=== PATIENT | male | born 1970 | race Caucasian/White ===

== ENCOUNTER 2018-02-06 08:26 | Outpatient (CLI) | payer OTHER ==
--- NOTE | 2018-02-06 10:21 | CT ---
CT ABDOMEN AND PELVIS WITHOUT CONTRAST: Comparison: None. History: Left flank pain for the past month. Technique: Multiple contiguous axial images were obtained in a CT of the abdomen and pelvis without c ontrast. Coronal reformats were performed. FINDINGS: There is a 2.6 cm nonspecific hypodense lesion in the anterior aspect of the left lobe of the liver. This does not meet criteria for a simple cyst. The gallbladder, right kidney, adrenal glands, spleen, and pancreas are unremarkable, although evaluation is limited without IV contrast. There appears to be a subcentimeter hypodensity in the left kidney which cannot be characterized without contrast and given its small size. No free air, free fluid, or stranding changes are seen in the abdomen or pelvis . There is scattered diverticula in the colon. The small bowel is unremarkable. No abdominal or pelvic lymphadenopathy are seen. No calcifications are seen in either ureter or in the urinary bladder. Degenerative changes are seen in the spine. Visualized inferior thorax and abdominal wall soft tissue s are unremarkable. IMPRESSION: 1. No evidence of renal calculi. 2. Nonspecific hypodensity in the left lobe of the liver. A CT of the abdomen per liver mass protocol is recommended for better characterization. 3. Hypodensity in the left kidney is too small to definitely characterize but could represent a small cyst. 4. Diverticulosis. POS: [facility]
== END 2018-02-06 08:27 | disposition home or self-care (01) ==
LOC: SCSCT 08:26
PROVIDERS: ATTEND Nurse Practitioner Family
DX: R10.9 Unspecified abdominal pain (principal); K57.30 Diverticulosis of large intestine without perforation or abscess without bleeding; K76.89 Other specified diseases of liver
CPT/HCPCS: 74176

== ENCOUNTER 2018-03-13 07:30 | Outpatient (CLI) | payer OTHER ==
[2018-03-13] MEDS ORDERED: Iopamidol 370 76% 100 ML VIAL ONE (09:00)
--- NOTE | 2018-03-13 14:19 | CT ---
CT ABDOMEN AND PELVIS WITH AND WITHOUT CONTRAST: (Liver mass protocol) Date: 03/13/18 HISTORY: Liver mass on a recent CT examination. COMPARISON: CT stone protocol dated 02/06/18. FINDINGS: The lung bases are clear. No pericardial effusion. In hepatic segment II, there is a subcapsular mass, which is ovoid, measuring 2.4 x 1.9 cm, with maura pheral centripetal enhancement. On the 5 minute delayed phase of contrast, the mass is smaller centra lly with some peripheral enhancement. No abnormal central arterial enhancement to this mass. No other abnormality of the liver is appreciated. There is a small hypodensity intrapolar left kidney with fluid attenuation suggesting a cyst. No abno rmal renal enhancing mass. The pancreas is unremarkable. Aortic size is normal. No dilated loops of large or small bowel in the upper abdomen. There are strong ureteral jets seen extending from the ureterovesical junctions bilaterally. This is seen on the delayed coronal sequence. There is also moderate diverticular disease of the sigmoid colo n without active current inflammation. No dilated loops of large or small bowel. No retroperitoneal adenopathy. No acute osseous abnormality . IMPRESSION: The recent hepatic findings are diagnostic of a benign hepatic hemangioma. POS: [facility]
== END 2018-03-13 07:31 | disposition home or self-care (01) ==
LOC: SCSCT 07:30
PROVIDERS: ATTEND Internal Medicine Gastroenterology
DX: R10.9 Unspecified abdominal pain (principal); D18.03 Hemangioma of intra-abdominal structures
CPT/HCPCS: 74178

== ENCOUNTER 2020-07-13 01:22 | Inpatient (IN) | payer OTHER, BC ==
[2020-07-13 01:44] LABS: #Basophils 0.1 thou/uL (0.0-0.2); #Eosinphils 0.1 thou/uL (0.0-0.7); #Lymphocytes 4.1 thou/uL (1.20-3.40); #Monocytes 0.6 thou/uL (0.11-0.59); #Neutrophils 5.8 thou/uL (1.40-6.50); %Basophils 0.8 % (0.0-1.0); %Lymphocytes 38.6 % (21.0-51.0); %Monocytes 5.4 % (0.0-10.0); %Neutrophils 54.2 % (42.0-75.0); Mean Corpuscular HGB CONC 34.3 g/dL (32.0-36.0); Mean Corpuscular Volume 93.4 fL (78.0-98.0); Mean Platelet Volume 6.7 fL (7.4-10.4); Platelet Count 304 thou/uL (130-400); RBC Distribution Width 11.5 % (11.5-14.5); Red Blood Cell (RBC) Count 5.02 mill/uL (4.70-6.10); White Blood Cell (WBC) Count 10.7 thou/uL (4.8-10.8)
[2020-07-13 01:44] LABS: Analyzer IN Cardio ER; Base Excess (BEa) -8.9 mEq/L (-2.0 to +3.0); CO2 Tension 42.1 mmHg (35.0-45.0); Calcium, Ionized (arterial) 1.24 mmol/L (1.12-1.30); Carboxyhemoglobin (COHb) 0.1 gm% (0.0-3.0); Hemoglobin (Hb) 16.4 g/dL (14.0-18.0); O2 Tension (PaO2), arterial 241.5 mmHg (80.0-100.0); Potassium - ABG Lab 4.49 mmol/L (3.70-5.30)
[2020-07-13 01:45] LABS: pH, Arterial 7.25 (7.35-7.45)
[2020-07-13] MEDS ORDERED: Fentanyl CADD 100 ML IV SCH (01:45)
[2020-07-13 01:46] LABS: ALV-art Gradient 130.675 mmHg (0-20); Puncture Site LRA
[2020-07-13 01:51] LABS: PTT 24.9 sec (22.9-36.1); Prothrombin Time 13.5 sec (12.0-14.7)
[2020-07-13 01:52] LABS: Lactic Acid 2.4 mmol/L (0.5-2.2)
[2020-07-13 01:56] LABS: ALT (SGPT) 47 U/L (8-55); AST (SGOT) 48 U/L (5-34); Albumin 4.4 g/dL (3.5-5.0); Alkaline Phosphatase 80 U/L (40-110); Anion Gap 19 mmol/L (10-20); BUN (Urea Nitrogen) 25 mg/dL (8.9-20.6); Bilirubin, Total 0.6 mg/dL (0.2-1.2); Calc. Creatinine Clearance 0 mL/min (70-130); Carbon Dioxide 15 mmol/L (22-29); Chloride 107 mmol/L (98-107); Globulin 3.6 g/dL (2.4-3.5); Glucose 93 mg/dL (70-105); Potassium 4.5 mmol/L (3.5-5.1); Sodium 136 mmol/L (136-145)
[2020-07-13 01:58] LABS: Alcohol 180 mg/dL (Less than 10); Lipase 39 U/L (8-78)
[2020-07-13 01:59] LABS: Bilirubin Negative (Negative); Blood, Urine 2+ (Negative); Clarity Clear (Clear); Glucose, Urine (Dipstick) Normal (Negative); Ketone, Urine Negative (Negative); Leukocyte Negative Leu/uL (Negative); Nitrite Negative (Negative); Protein, Urine (Dipstick) 20 mg/dL (Neg-Trace); RBC/HPF 0-3 HPF (0-3); Specific Gravity, Urine 1.008 (1.002-1.036); Squamous Epithelial None Seen HPF (0-3); Urobilinogen Normal mg/dL (Less than 2); WBC/HPF 0-3 HPF (0-3); pH, Urine 5.5 (5.0-9.0)
[2020-07-13 02:01] LABS: Amphetamine Not Detected (NotDetected); Bacteria/HPF 1+ HPF (None Seen); Barbiturates Screen Not Detected (NotDetected); Benzodiazepine Screen Not Detected (NotDetected); Cocaine Metabolite Screen Not Detected (NotDetected); Medtox Control Line Valid? VALID (VALID); Medtox Reader # READER 4; Methadone Not Detected (NotDetected); Methamphetamine Not Detected (NotDetected); Opiate Screen Not Detected (NotDetected); Oxycodone Screen Not Detected (NotDetected); Phencyclidine (PCP) Not Detected (NotDetected); THC/Cannabinoid Screen Not Detected (NotDetected); Tricyclic Screen Not Detected (NotDetected)
[2020-07-13] MEDS ORDERED: Propofol 1,000 MG/100 ML VIAL IV ONE (02:31)
[2020-07-13] MEDS ORDERED: Ondansetron PF 4 MG/2 ML Vial ONE (02:44)
[2020-07-13 04:17] LABS: SARS-CoV-2 NAA Rapid Test Not Detected (NotDetected)
[2020-07-13] MEDS ORDERED: Ondansetron PF 4 MG/2 ML Vial IVP PRN (04:44)
[2020-07-13] MEDS ORDERED: hydrALAZINE 20 MG/ML VIAL SLOW IVP PRN (04:44)
[2020-07-13] MEDS ORDERED: Dextrose 5% in Water 1,000 ML IV PRN (04:44)
[2020-07-13] MEDS ORDERED: Dextrose 50% Abboject 50 ML SYRINGE SLOW IVP PRN (04:44)
[2020-07-13] MEDS ORDERED: Ondansetron ODT 4 MG TAB PO PRN (04:44)
[2020-07-13] MEDS ORDERED: Promethazine HCl 25 MG/ML VIAL IM PRN (04:44)
[2020-07-13] MEDS ORDERED: Ventilator Sedation Protocol 1 EACH FS SCH (04:44)
[2020-07-13] MEDS ORDERED: Fentanyl BOLUS 250 ML IVPB PRN (05:00)
[2020-07-13] MEDS ORDERED: DISCONTINUE PREVIOUS NARCOTIC PAIN MEDICATIONS AND BENZODIAZEPINES FS SCH (05:00)
[2020-07-13] MEDS ORDERED: Propofol 1,000 MG/100 ML VIAL IV PRN (05:00)
[2020-07-13] MEDS ORDERED: Lorazepam 2 MG/ML VIAL SLOW IVP PRN (05:00)
[2020-07-13] MEDS ORDERED: Propofol BOLUS 1,000 MG/100 ML VIAL IV PRN (05:00)
[2020-07-13] MEDS ORDERED: Morphine 2 MG/ML VIAL SLOW IVP PRN (05:00)
[2020-07-13 05:10] VITALS: BMI 28.7
[2020-07-13] MEDS: Sodium Chloride 0.9% 1,000 ML IV SCH ×3 (06:04→23:42)
[2020-07-13 08:11] LABS: Actual Bicarbonate (HCO3a) 14.6 mEq/L (22-28); Base Excess (BEa) -10.1 mEq/L (-2.0 to +3.0); CO2 Tension 29.5 mmHg (35.0-45.0); Calcium, Ionized (arterial) 1.15 mmol/L (1.12-1.30); Carboxyhemoglobin (COHb) 0.6 gm% (0.0-3.0); Hemoglobin (Hb) 14.9 g/dL (14.0-18.0); Potassium - ABG Lab 4.39 mmol/L (3.70-5.30); pH, Arterial 7.31 (7.35-7.45)
[2020-07-13 08:14] LABS: ALV-art Gradient 78.325 mmHg (0-20); Puncture Site RRA
[2020-07-13] MEDS: Famotidine/PF 20 mg/2ml Vial SLOW IVP SCH ×2 (10:24→20:14)
[2020-07-13] MEDS: Thiamine HCl 200 MG/2 ML VIAL SLOW IVP SCH (10:25)
[2020-07-13] MEDS ORDERED: Iopamidol-370 76% 500 ML 1 ML ONE (11:28)
[2020-07-13] MEDS ORDERED: traMADol HCl 50 MG TAB PO PRN (12:18)
[2020-07-13] MEDS ORDERED: Ibuprofen 800 MG TAB PO PRN (12:18)
[2020-07-13] MEDS ORDERED: Cyclobenzaprine 10 MG TAB PO PRN (12:18)
[2020-07-13] MEDS ORDERED: Gabapentin 300 MG CAP PO SCH (12:30)
[2020-07-13] MEDS: Acetaminophen 500 MG TAB PO SCH ×2 (13:11→18:51)
[2020-07-13] MEDS: traMADol HCl 50 MG TAB PO SCH ×2 (13:12→18:52)
[2020-07-13] MEDS: Gabapentin 300 MG CAP PO SCH (20:14)
[2020-07-14] MEDS: Acetaminophen 500 MG TAB PO SCH ×4 (00:16→18:11)
[2020-07-14] MEDS: traMADol HCl 50 MG TAB PO SCH ×4 (00:17→18:12)
[2020-07-14] MEDS: Sodium Chloride 0.9% 1,000 ML IV SCH ×2 (01:14→09:03)
[2020-07-14 06:13] LABS: #Eosinphils 0.1 thou/uL (0.0-0.7); #Lymphocytes 1.3 thou/uL (1.20-3.40); #Monocytes 0.6 thou/uL (0.11-0.59); #Neutrophils 4.9 thou/uL (1.40-6.50); %Basophils 0.2 % (0.0-1.0); %Lymphocytes 18.1 % (21.0-51.0); %Monocytes 9.3 % (0.0-10.0); %Neutrophils 71.4 % (42.0-75.0); Mean Corpuscular HGB CONC 32.7 g/dL (32.0-36.0); Mean Corpuscular Hemoglobin 31.3 pg (27.0-31.0); Mean Corpuscular Volume 95.7 fL (78.0-98.0); Mean Platelet Volume 6.7 fL (7.4-10.4); Platelet Count 168 thou/uL (130-400); RBC Distribution Width 11.4 % (11.5-14.5); Red Blood Cell (RBC) Count 4.16 mill/uL (4.70-6.10); White Blood Cell (WBC) Count 6.9 thou/uL (4.8-10.8)
[2020-07-14 06:34] LABS: Anion Gap 10 mmol/L (10-20); BUN (Urea Nitrogen) 16 mg/dL (8.9-20.6); Calc. Creatinine Clearance 157 mL/min (70-130); Calcium 7.7 mg/dL (7.8-10.44); Carbon Dioxide 23 mmol/L (22-29); Chloride 107 mmol/L (98-107); Glucose 96 mg/dL (70-105); Potassium 4.5 mmol/L (3.5-5.1); Sodium 135 mmol/L (136-145)
[2020-07-14] MEDS: Bupropion 150 MG XL TAB PO SCH (08:55)
[2020-07-14] MEDS: Famotidine/PF 20 mg/2ml Vial SLOW IVP SCH ×2 (08:55→20:56)
[2020-07-14] MEDS: Loratadine 10 MG TAB PO SCH (08:56)
[2020-07-14] MEDS: Thiamine HCl 200 MG/2 ML VIAL SLOW IVP SCH (08:56)
[2020-07-14] MEDS: Citalopram 10 MG TAB PO SCH (08:56)
[2020-07-14] MEDS: Gabapentin 300 MG CAP PO SCH ×2 (08:56→20:57)
[2020-07-14] MEDS ORDERED: Tamsulosin HCl 0.4 MG CAP PO SCH (15:00)
[2020-07-14] MEDS: Tamsulosin HCl 0.4 MG CAP PO SCH (20:56)
[2020-07-14] MEDS: Senokot S 8.6-50 MG TAB PO SCH (20:56)
[2020-07-15] MEDS: Acetaminophen 500 MG TAB PO SCH ×5 (01:01→23:38)
[2020-07-15] MEDS: traMADol HCl 50 MG TAB PO SCH ×5 (01:02→23:37)
[2020-07-15] MEDS: Gabapentin 300 MG CAP PO SCH ×2 (08:11→20:00)
[2020-07-15] MEDS: Loratadine 10 MG TAB PO SCH (08:11)
[2020-07-15] MEDS: Senokot S 8.6-50 MG TAB PO SCH ×2 (08:11→20:01)
[2020-07-15] MEDS: Bupropion 150 MG XL TAB PO SCH (08:11)
[2020-07-15] MEDS: Polyethylene Glycol 3350 17 GM Packet PO SCH (08:13)
[2020-07-15] MEDS: Famotidine/PF 20 mg/2ml Vial SLOW IVP SCH (08:13)
[2020-07-15] MEDS: Citalopram 10 MG TAB PO SCH (08:14)
[2020-07-15] MEDS: Thiamine HCl 200 MG/2 ML VIAL SLOW IVP SCH (09:15)
[2020-07-15] MEDS: Tamsulosin HCl 0.4 MG CAP PO SCH (20:00)
[2020-07-15] MEDS: Silver Sulfadiazine 50 GM TUBE TOP SCH (20:23)
[2020-07-16] MEDS: Acetaminophen 500 MG TAB PO SCH ×3 (05:39→18:09)
[2020-07-16] MEDS: traMADol HCl 50 MG TAB PO SCH ×3 (05:39→18:09)
[2020-07-16] MEDS: Polyethylene Glycol 3350 17 GM Packet PO SCH (09:29)
[2020-07-16] MEDS: Enoxaparin Sodium 40 MG/0.4 ML SYRINGE SC SCH (09:29)
[2020-07-16] MEDS: Bupropion 150 MG XL TAB PO SCH (09:29)
[2020-07-16] MEDS: Gabapentin 300 MG CAP PO SCH ×2 (09:30→20:27)
[2020-07-16] MEDS: Senokot S 8.6-50 MG TAB PO SCH ×2 (09:30→20:27)
[2020-07-16] MEDS: Loratadine 10 MG TAB PO SCH (09:30)
[2020-07-16] MEDS: Citalopram 10 MG TAB PO SCH (09:31)
[2020-07-16] MEDS: Silver Sulfadiazine 50 GM TUBE TOP SCH ×2 (09:31→20:28)
[2020-07-16] MEDS: Thiamine HCl 200 MG/2 ML VIAL SLOW IVP SCH (09:32)
[2020-07-16] MEDS: Tamsulosin HCl 0.4 MG CAP PO SCH (20:28)
[2020-07-17] MEDS: Acetaminophen 500 MG TAB PO SCH ×3 (00:20→12:22)
[2020-07-17] MEDS: traMADol HCl 50 MG TAB PO SCH ×4 (00:21→17:43)
[2020-07-17] MEDS ORDERED: Multivit, Therapeutic 1 TAB PO SCH (09:00)
[2020-07-17] MEDS ORDERED: Thiamine 100 MG TAB PO SCH (09:00)
[2020-07-17] MEDS ORDERED: Folic Acid 1 MG TAB PO SCH (09:00)
[2020-07-17] MEDS: Enoxaparin Sodium 40 MG/0.4 ML SYRINGE SC SCH (09:49)
[2020-07-17] MEDS: Bupropion 150 MG XL TAB PO SCH (09:49)
[2020-07-17] MEDS: Polyethylene Glycol 3350 17 GM Packet PO SCH (09:49)
[2020-07-17] MEDS: Loratadine 10 MG TAB PO SCH (09:50)
[2020-07-17] MEDS: Citalopram 10 MG TAB PO SCH (09:50)
[2020-07-17] MEDS: Senokot S 8.6-50 MG TAB PO SCH (09:50)
[2020-07-17] MEDS: Gabapentin 300 MG CAP PO SCH (09:50)
[2020-07-17] MEDS: Silver Sulfadiazine 50 GM TUBE TOP SCH (09:51)
[2020-07-17 16:15] VITALS: BP 123/83; TEMP 98.7
== END 2020-07-17 18:15 | disposition home health service (06) | DRG 551 ==
LOC: ERS 01:22 → CCU 03:04 → SURG A 17:22
PROVIDERS: ADMIT Surgery; ATTEND Surgery
PROC: 0BH17EZ Insertion of Endotracheal Airway into Trachea, Via Natural or Artificial Opening (ICD-10-PCS; principal; 2020-07-13)
PROC: 5A1935Z Respiratory Ventilation, Less than 24 Consecutive Hours (ICD-10-PCS; 2020-07-13)
DX: S32.10XA Unspecified fracture of sacrum, initial encounter for closed fracture (principal); J96.00 Acute respiratory failure, unspecified whether with hypoxia or hypercapnia; G93.41 Metabolic encephalopathy; S32.039A Unspecified fracture of third lumbar vertebra, initial encounter for closed fracture; J98.11 Atelectasis; Z20.822 Contact with and (suspected) exposure to COVID-19; V89.2XXA Person injured in unspecified motor-vehicle accident, traffic, initial encounter
CPT/HCPCS: 31500; 36415; 36416; 36600; 51702; 70450; 71045; 71260; 72125; 74177; 80048; 80053; 80306; 80307; 81003; 81015; 82805; 83605; 83690; 84484; 85025; 85610; 85730; 86850; 86900; 86901; 94002; 94003; 94640; 96365; 96366; 96375; G0390; J1650; J2405; J2704; J3411; J7620; Q9967; S0028; U0002

== ENCOUNTER 2023-01-29 01:42 | Inpatient (IN) | payer BC, OTHER ==
[2023-01-29] MEDS ORDERED: Ondansetron PF 4 MG/2 ML Vial ONE (01:51)
[2023-01-29] MEDS ORDERED: fentaNYL 50 mcg/mL 1 mL Vial ONE (01:56)
[2023-01-29] MEDS ORDERED: CEFAZOLIN 2 GM VIAL ONE (01:56)
[2023-01-29] MEDS ORDERED: Boostrix 0.5 ML (Tdap) VIAL (>/=7 yrs of age) ONE (01:57)
[2023-01-29] MEDS ORDERED: Sodium Chloride 0.9% 100 ML ONE (01:57)
[2023-01-29 02:07] LABS: #Eosinphils 0.1 thou/uL (0.0-0.7); #Monocytes 0.6 thou/uL (0.11-0.59); #Neutrophils 4.2 thou/uL (1.40-6.50); %Basophils 0.5 % (0.0-1.0); %Eosinophils 1.5 % (0.0-10.0); %Lymphocytes 37.6 % (21.0-51.0); %Monocytes 7.7 % (0.0-10.0); %Neutrophils 52.1 % (42.0-75.0); Hematocrit 42.8 % (42.0-52.0); Hemoglobin 14.6 g/dL (14.0-18.0); Mean Corpuscular HGB CONC 34.1 g/dL (32.0-36.0); Mean Corpuscular Hemoglobin 31.7 pg (27.0-31.0); Mean Platelet Volume 9.3 fL (7.4-10.4); Platelet Count 292 10x3/uL (130-400)
[2023-01-29 02:34] LABS: Troponin I Less than 0.010 ng/mL (< 0.028)
[2023-01-29 02:37] LABS: ALT (SGPT) 19 U/L (8-55); AST (SGOT) 25 U/L (5-34); Albumin 4.3 g/dL (3.5-5.0); Alcohol 175.9 mg/dL (Less than 10); Alkaline Phosphatase 74 U/L (40-110); Anion Gap 15 mmol/L (10-20); BUN (Urea Nitrogen) 12 mg/dL (8.9-20.6); Bilirubin, Total 0.3 mg/dL (0.2-1.2); Calc. Creatinine Clearance 0 mL/min (70-130); Calcium 8.6 mg/dL (7.8-10.44); Carbon Dioxide 20 mmol/L (22-29); Chloride 106 mmol/L (98-107); Estimated GFR 98; Globulin 2.8 g/dL (2.4-3.5); Glucose 119 mg/dL (70-105); Lipase 27 U/L (8-78); Potassium 3.9 mmol/L (3.5-5.1); Protein, Total 7.1 g/dL (6.0-8.3); Sodium 137 mmol/L (136-145)
[2023-01-29] MEDS ORDERED: Ketorolac Tromethamine 30 MG/ML VIAL ONE (03:35)
[2023-01-29] MEDS ORDERED: Morphine 4 MG/ML VIAL ONE (03:35)
[2023-01-29] MEDS ORDERED: Ipratropium/Albuterol 3 ML NEB NEB PRN (03:57)
[2023-01-29] MEDS ORDERED: Morphine 2 MG/ML VIAL SLOW IVP PRN (03:57)
[2023-01-29] MEDS ORDERED: hydrALAZINE 20 MG/ML VIAL SLOW IVP PRN (03:57)
[2023-01-29] MEDS ORDERED: Ondansetron PF 4 MG/2 ML Vial IVP PRN (03:57)
[2023-01-29] MEDS ORDERED: traMADol HCl 50 MG TAB PO PRN (04:00)
[2023-01-29] MEDS ORDERED: Lidocaine 1% PF 5 ML VIAL ONE ×2 (04:42→04:54)
[2023-01-29] MEDS ORDERED: Lidocaine 1% w/Epinephrine 1:100K 20 ML VIAL FS SCH (05:00)
[2023-01-29 05:06] LABS: Lactic Acid 2.4 mmol/L (0.5-2.2)
[2023-01-29] MEDS ORDERED: Lidocaine 1% w/Epinephrine 1:100K 20 ML VIAL ONE (05:12)
[2023-01-29] MEDS: Sodium Chloride 0.9% 1,000 ML IV SCH ×2 (07:54→15:14)
[2023-01-29] MEDS: Famotidine 20 MG TAB PO SCH ×2 (08:05→21:39)
[2023-01-29] MEDS: Gabapentin 300 MG CAP PO SCH ×3 (08:05→21:39)
[2023-01-29] MEDS: Citalopram 10 MG TAB PO SCH (08:05)
[2023-01-29] MEDS: Multivitamin W/ Minerals 1 TAB PO SCH (08:05)
[2023-01-29] MEDS: Acetaminophen 500 MG TAB PO SCH ×3 (08:06→19:10)
[2023-01-29] MEDS: traMADol HCl 50 MG TAB PO SCH ×3 (08:07→19:10)
[2023-01-29] MEDS: Senokot S 8.6-50 MG TAB PO SCH ×2 (08:08→21:39)
[2023-01-29] MEDS: Polyethylene Glycol 3350 17 GM Packet PO SCH (08:08)
[2023-01-29 08:15] VITALS: BMI 28.8
[2023-01-29] MEDS ORDERED: Ketorolac Tromethamine 30 MG/ML VIAL IVP SCH (08:30)
[2023-01-29] MEDS ORDERED: Scopolamine 1 mg/72 hour Patch TD SCH (09:00)
[2023-01-29] MEDS: Ketorolac Tromethamine 30 MG/ML VIAL IVP SCH ×2 (12:38→19:10)
[2023-01-29] MEDS ORDERED: FLU VACC QS2023-24(6MOS UP)/PF 60 MCG/0.5 ML SYRINGE IM ONE (14:00)
[2023-01-29] MEDS: Oxazepam 10 MG CAP PO SCH ×2 (15:14→21:39)
[2023-01-29] MEDS: Cyclobenzaprine 10 MG TAB PO PRN (21:41)
[2023-01-30] MEDS: Acetaminophen 500 MG TAB PO SCH ×5 (01:26→23:45)
[2023-01-30] MEDS: Ketorolac Tromethamine 30 MG/ML VIAL IVP SCH ×2 (01:26→05:53)
[2023-01-30] MEDS: traMADol HCl 50 MG TAB PO SCH ×5 (01:26→23:45)
[2023-01-30 05:24] LABS: #Eosinphils 0.1 thou/uL (0.0-0.7); #Monocytes 0.8 thou/uL (0.11-0.59); #Neutrophils 4.2 thou/uL (1.40-6.50); %Basophils 0.6 % (0.0-1.0); %Eosinophils 1.3 % (0.0-10.0); %Lymphocytes 26.3 % (21.0-51.0); %Monocytes 10.9 % (0.0-10.0); %Neutrophils 60.6 % (42.0-75.0); Hematocrit 39.5 % (42.0-52.0); Hemoglobin 12.8 g/dL (14.0-18.0); Mean Corpuscular HGB CONC 32.4 g/dL (32.0-36.0); Mean Corpuscular Hemoglobin 30.9 pg (27.0-31.0); Mean Corpuscular Volume 95.4 fl (78.0-98.0); Mean Platelet Volume 9.6 fL (7.4-10.4); Platelet Count 216 10x3/uL (130-400); RBC Distribution Width 12.5 % (11.5-14.5); Red Blood Cell (RBC) Count 4.14 mill/uL (4.70-6.10); White Blood Cell (WBC) Count 6.9 10x3/uL (4.8-10.8)
[2023-01-30 05:47] LABS: Anion Gap 11 mmol/L (10-20); BUN (Urea Nitrogen) 9 mg/dL (8.9-20.6); Calc. Creatinine Clearance 144 mL/min (70-130); Calcium 8.4 mg/dL (7.8-10.44); Carbon Dioxide 24 mmol/L (22-29); Chloride 109 mmol/L (98-107); Estimated GFR 108; Glucose 98 mg/dL (70-105); Potassium 3.8 mmol/L (3.5-5.1); Sodium 140 mmol/L (136-145)
[2023-01-30] MEDS: Oxazepam 10 MG CAP PO SCH (05:53)
[2023-01-30] MEDS ORDERED: D3 PO SCH (09:00)
[2023-01-30] MEDS ORDERED: BOSWELLIA SERRA PO SCH (09:00)
[2023-01-30] MEDS ORDERED: GLUCOSAMINE PO SCH (09:00)
[2023-01-30] MEDS: Folic Acid 1 MG TAB PO SCH (09:26)
[2023-01-30] MEDS: Polyethylene Glycol 3350 17 GM Packet PO SCH (09:26)
[2023-01-30] MEDS: Citalopram 10 MG TAB PO SCH (09:26)
[2023-01-30] MEDS: Multivitamin W/ Minerals 1 TAB PO SCH (09:27)
[2023-01-30] MEDS: Gabapentin 300 MG CAP PO SCH (09:27)
[2023-01-30] MEDS: Famotidine 20 MG TAB PO SCH ×2 (09:28→20:52)
[2023-01-30] MEDS: Thiamine 100 MG TAB PO SCH (09:29)
[2023-01-30] MEDS: Senokot S 8.6-50 MG TAB PO SCH ×2 (14:58→20:51)
[2023-01-30] MEDS: Ibuprofen 200 MG TAB PO SCH ×2 (15:04→20:52)
[2023-01-30] MEDS: Cyclobenzaprine 10 MG TAB PO PRN ×2 (15:04→20:51)
[2023-01-30] MEDS: rOPINIRole HCl 0.5 MG TAB PO SCH (18:21)
[2023-01-31] MEDS: Acetaminophen 500 MG TAB PO SCH ×3 (01:13→12:02)
[2023-01-31] MEDS: traMADol HCl 50 MG TAB PO SCH ×3 (01:14→12:02)
[2023-01-31] MEDS: Ibuprofen 200 MG TAB PO SCH ×2 (05:59→12:03)
[2023-01-31] MEDS: Senokot S 8.6-50 MG TAB PO SCH (09:22)
[2023-01-31] MEDS: Polyethylene Glycol 3350 17 GM Packet PO SCH (09:23)
[2023-01-31] MEDS: rOPINIRole HCl 0.5 MG TAB PO SCH (09:23)
[2023-01-31] MEDS: Multivitamin W/ Minerals 1 TAB PO SCH (09:23)
[2023-01-31] MEDS: Folic Acid 1 MG TAB PO SCH (09:23)
[2023-01-31] MEDS: Citalopram 10 MG TAB PO SCH (09:23)
[2023-01-31] MEDS: Famotidine 20 MG TAB PO SCH (09:23)
[2023-01-31] MEDS: Thiamine 100 MG TAB PO SCH (09:23)
[2023-01-31] MEDS ORDERED: Cyclobenzaprine 10 MG TAB PO PRN (09:55)
[2023-01-31 13:07] VITALS: BP 137/92; TEMP 99.2
[2023-01-31] MEDS ORDERED: Bacitracin 1 PK TOP SCH (15:00)
== END 2023-01-31 12:45 | disposition home or self-care (01) | DRG 184 ==
LOC: ERS 01:42 → T4-B 03:57 → SURG A 14:32
PROVIDERS: ADMIT Student in an Organized Health Care Education/Training Program; ATTEND Student in an Organized Health Care Education/Training Program
PROC: 0HQ0XZZ Repair Scalp Skin, External Approach (ICD-10-PCS; principal; 2023-01-29)
DX: S22.42XA Multiple fractures of ribs, left side, initial encounter for closed fracture (principal); S27.9XXA Injury of unspecified intrathoracic organ, initial encounter; S06.0X0A Concussion without loss of consciousness, initial encounter; S00.03XA Contusion of scalp, initial encounter; F10.129 Alcohol abuse with intoxication, unspecified; G89.11 Acute pain due to trauma; V29.99XA Rider (driver) (passenger) of other motorcycle injured in unspecified traffic accident, initial encounter
CPT/HCPCS: 12005; 36415; 70450; 71045; 71260; 72125; 74177; 80048; 80053; 80307; 83605; 83690; 84484; 85025; 86850; 86900; 86901; 90471; 90686; 90715; 93005; 96360; 96361; 96365; 96366; 96375; 99292; G0008; G0390; J1885; J2270; J2272; J2405; J3010; J3490; J7050

== ENCOUNTER 2023-02-15 12:00 | Outpatient (CLI) | payer BC | END 2023-02-15 12:01 | disposition home or self-care (01) | LOC: RAD 12:00 | PROVIDERS: ATTEND Student in an Organized Health Care Education/Training Program | DX: S22.42XA Multiple fractures of ribs, left side, initial encounter for closed fracture (principal) | CPT/HCPCS: 71046 ==

== ENCOUNTER 2024-02-17 12:29 | Outpatient (CLI) | payer BC | END 2024-02-17 12:30 | disposition home or self-care (01) | LOC: SCSMRI 12:29 | PROVIDERS: ATTEND Nurse Practitioner Family | DX: M47.816 Spondylosis without myelopathy or radiculopathy, lumbar region (principal); R20.0 Anesthesia of skin; R20.2 Paresthesia of skin; R93.7 Abnormal findings on diagnostic imaging of other parts of musculoskeletal system; M47.815 Spondylosis without myelopathy or radiculopathy, thoracolumbar region; M48.05 Spinal stenosis, thoracolumbar region; M51.369 Other intervertebral disc degeneration, lumbar region without mention of lumbar back pain or lower extremity pain; M48.061 Spinal stenosis, lumbar region without neurogenic claudication; M51.379 Other intervertebral disc degeneration, lumbosacral region without mention of lumbar back pain or lower extremity pain; M48.07 Spinal stenosis, lumbosacral region; M47.817 Spondylosis without myelopathy or radiculopathy, lumbosacral region | CPT/HCPCS: 72148 ==